=== PATIENT | male | born 1985 | race Native Hawaiian/Other Pacific Islander ===

== ENCOUNTER 2018-04-20 14:58 | Outpatient (CLI) | payer OTHER | END 2018-04-20 15:06 | disposition short-term general hospital (02) | LOC: AMB 14:58 | DX: S57.82XA Crushing injury of left forearm, initial encounter (principal); W20.8XXA Other cause of strike by thrown, projected or falling object, initial encounter; Y93.89 Activity, other specified; Y92.017 Garden or yard in single-family (private) house as the place of occurrence of the external cause | CPT/HCPCS: A0425; A0427 ==

== ENCOUNTER 2018-04-20 15:08 | Emergency (ER) | payer OTHER ==
[~2018-04-20] VITALS: Ht 180.3 cm; Wt 108.9 kg
[2018-04-20 17:03] LABS: PLATELET COUNT 309 K/uL (142-355)
[2018-04-20 17:10] LABS: POTASSIUM 3.9 mmol/L (3.6-5.2)
[2018-04-22 18:20] VITALS: BP 134/89; TEMP 98.2
== END 2018-04-22 18:20 | disposition home or self-care (01) ==
LOC: ED 15:12
PROVIDERS: Emergency Medicine
DX: F11.10 Opioid abuse, uncomplicated (principal)
CPT/HCPCS: 80053; 80307; 80320; 80329; 81000; 85027; 93005; 99285; J1885

== ENCOUNTER 2018-04-28 17:12 | Outpatient (CLI) | payer OTHER | END 2018-04-28 17:22 | disposition short-term general hospital (02) | LOC: AMB 17:12 | DX: R20.0 Anesthesia of skin (principal) | CPT/HCPCS: A0425; A0427 ==

== ENCOUNTER 2018-04-28 17:32 | Emergency (ER) | payer OTHER ==
[~2018-04-28] VITALS: Ht 180.3 cm; Wt 108.9 kg
[2018-04-28 17:32] VITALS: TEMP 98.5
[2018-04-28 18:05] LABS: PLATELET COUNT 296 K/uL (142-355)
[2018-04-28 18:23] LABS: POTASSIUM 4.3 mmol/L (3.6-5.2)
[2018-04-28 18:24] VITALS: BP 162/108
== END 2018-04-28 19:50 | disposition home or self-care (01) ==
LOC: ED 17:32
PROVIDERS: Family Medicine
DX: I10 Essential (primary) hypertension (principal); R51 Headache
CPT/HCPCS: 36415; 80053; 80307; 81000; 85027; 99283

== ENCOUNTER 2018-04-29 17:55 | Emergency (ER) | payer OTHER ==
[~2018-04-29] VITALS: Ht 180.3 cm; Wt 108.9 kg
[2018-04-29 18:19] VITALS: TEMP 98
[2018-04-29 18:57] LABS: PLATELET COUNT 257 K/uL (142-355)
[2018-04-29 19:09] LABS: POTASSIUM 4.2 mmol/L (3.6-5.2)
[2018-04-29 23:32] VITALS: BP 151/109
== END 2018-04-29 23:39 | disposition home or self-care (01) ==
LOC: ED 17:55
PROVIDERS: Emergency Medicine
DX: R56.9 Unspecified convulsions (principal); R55 Syncope and collapse; R00.0 Tachycardia, unspecified
CPT/HCPCS: 36415; 80053; 80307; 81000; 85027; 93005; 96372; 99283; J1885

== ENCOUNTER 2018-04-30 09:50 | Emergency (ER) | payer OTHER ==
[~2018-04-30] VITALS: Ht 180.3 cm; Wt 108.9 kg
[2018-04-30 10:00] VITALS: TEMP 99.1
[2018-04-30 11:09] VITALS: BP 180/107
== END 2018-04-30 11:30 | disposition home or self-care (01) ==
LOC: ED 09:50
DX: R56.9 Unspecified convulsions (principal)
CPT/HCPCS: 99281

== ENCOUNTER 2018-07-26 12:39 | Emergency (ER) | payer OTHER ==
[~2018-07-26] VITALS: Ht 180.3 cm; Wt 108.9 kg
[2018-07-26 13:39] LABS: PLATELET COUNT 233 K/uL (142-355)
[2018-07-26 13:45] LABS: POTASSIUM 4.2 mmol/L (3.6-5.2)
[2018-07-26 14:25] VITALS: BP 141/87; TEMP 97.7
== END 2018-07-26 14:25 | disposition home or self-care (01) ==
LOC: ED 12:39
PROVIDERS: Family Medicine
DX: I16.0 Hypertensive urgency (principal)
CPT/HCPCS: 80053; 81000; 85027; 99282; 99283